=== PATIENT | male | born 1995 | race Caucasian/White ===

== ENCOUNTER 2017-07-22 13:29 | Emergency (ER) | payer SELFPAY ==
[~2017-07-22] VITALS: Ht 162.6 cm; Wt 63.5 kg
[2017-07-22] MEDS ORDERED: BUPROPION XL300 MG ORAL (13:34)
[2017-07-22 14:31] LABS: BASOPHILS % (AUTO) 1.3 % (0.0-2.0); EOSINOPHILS % (AUTO) 0.3 % (0.0-3.0); LYMPHOCYTES % (AUTO) 19.3 % (20.0-45.0); MEAN CORPUSCULAR HEMOGLOBIN 31.6 PG (27.0-31.0); MEAN CORPUSCULAR HGB CONC 34.2 G/DL (32.0-36.0); MEAN CORPUSCULAR VOLUME 92 FL (80-99); MEAN PLATELET VOLUME 6.6 FL (6.5-10.1); MONOCYTES % (AUTO) 9.6 % (1.0-10.0); NEUTROPHILS % (AUTO) 69.6 % (45.0-75.0); PLATELET COUNT 445 K/UL (150-450); RED BLOOD COUNT 5.26 M/UL (4.70-6.10); RED CELL DISTRIBUTION WIDTH 12.2 % (11.6-14.8); WHITE BLOOD COUNT 16.2 K/UL (4.8-10.8)
[2017-07-22 15:16] LABS: ALANINE AMINOTRANSFERASE 17 U/L (12-78); ALBUMIN/GLOBULIN RATIO 1.5 (1.0-2.7); ANION GAP 20 mmol/L (5-15); ASPARTATE AMINO TRANSFERASE 23 U/L (15-37); CALCIUM 9.6 MG/DL (8.5-10.1); CARBON DIOXIDE 18 MMOL/L (21-32); CHLORIDE 99 MMOL/L (98-107); CREATININE 1.2 MG/DL (0.55-1.30); GLOMERULAR FILTRATION RATE > 60 mL/min (>60); POTASSIUM 3.9 MMOL/L (3.5-5.1); SODIUM 137 MMOL/L (136-145); TOTAL PROTEIN 8.3 G/DL (6.4-8.2)
[2017-07-22 15:17] LABS: ACETAMINOPHEN < 10 MCG/ML (10-30)
[2017-07-22 15:18] LABS: ALCOHOL < 3 mg/dL
[2017-07-22 16:10] VITALS: BP 125/86
[2017-07-22 20:00] VITALS: BP 128/88
[2017-07-23 07:30] VITALS: BP 119/74
--- NOTE | 2017-07-23 07:47 | Emergency Room Report ---
Physical Exam Vital Signs Date Time Temp Pulse Resp B/P (MAP) Pulse Ox O2 Delivery O2 Flow Rate FiO2 07/22/17 13:32 98.8 122 16 138/80 99 Room Air Medical Decision Making ER Course Received signout from Dr. Luevano 22-year-old male history of depression supposed to be on Wellbutrin here for suicidal ideation Not on hold Currently patient sleeping comfortably, when aroused he is calm and cooperative , still states that he is suicidal ideation once at home off a bridge, states that he last had a slight hospitalization discharged 4 days ago from [facility] in [place] Was given Zyprexa overnight Labs showing positive for meth Pending psych eval Last Vital Signs Date Time Temp Pulse Resp B/P (MAP) Pulse Ox O2 Delivery O2 Flow Rate FiO2 07/22/17 20:00 97.6 85 15 128/88 100 Room Air Referrals: NOT CHOSEN ADDY/,REFERRING (PCP) Anthony Silvestre M.D. Jul 23, 2017 07:47
[2017-07-23 14:42] VITALS: BP 116/73
--- NOTE | 2017-07-23 18:11 | Emergency Room Report ---
History of Present Illness General Chief Complaint: Behavioral Complaint Source: EMS Present Illness HPI 22 YO Male presents to ED C/O SI , and HI. Pt. reports cocaine use approx 3 days ago. denies illicit drug use in the last 48 hours. pt. reports he was previously hospitalized for 15 days at [facility]. Pt. states since d/c he has not had any of his medication. pt. reports being prescribed Wellbutrin and Ambien. pt reports 1 PSA states he attempted to slit his arm. He shows a scar on the left a/c region. Pt. denies PMhx otherwise. Denies taking excess of pills /meds/chemicals/drugs in an OD attempt. states he had SI of "jumping off something, and if he doesn't get to then he might even hurt somebody." when asked about further details pt. is vague, has no specific plans, however states he needs help. Denies CP, Palpitations, abscesses, open wounds, fevers, chills, cough, SOB, delusions, hallucinations, or LOC. Pt. has difficulty keeping attention to answer HPI and ROS questions. Allergies: Coded Allergies: No Known Allergies (Unverified , 07/22/17) Patient History Past Medical History: see triage record Past Surgical History: none Pertinent Family History: none Immunizations: UTD Reviewed Nursing Documentation: PMH: Agreed, PSxH: Agreed Nursing Documentation-PMH Past Medical History: No History, Except For History Of Psychiatric Problem: Yes - DEPRESSION Review of Systems All Other Systems: limited - poor attention span. Physical Exam Vital Signs Date Time Temp Pulse Resp B/P (MAP) Pulse Ox O2 Delivery O2 Flow Rate FiO2 07/22/17 13:32 98.8 122 16 138/80 99 Room Air Sp02 EP Interpretation: reviewed, normal General Appearance: no apparent distress, alert, GCS 15, non-toxic Head: normocephalic, atraumatic Eyes: bilateral eye normal inspection, bilateral eye PERRL ENT: hearing grossly normal, no angioedema, normal voice Neck: full range of motion, supple/symm/no masses Respiratory: lungs clear, normal breath sounds, speaking full sentences Cardiovascular #1: regular rate, rhythm, normal capillary refill Gastrointestinal: normal bowel sounds, non tender, soft, no guarding, no rebound Rectal: deferred Genitourinary: normal inspection, no CVA tenderness Musculoskeletal: back normal, gait/station normal, normal range of motion, non- tender Neurologic: alert, oriented x3, responsive, motor strength/tone normal, sensory intact Psychiatric: anxious, other Skin: normal color, no rash, warm/dry, well hydrated, other - 2.5 inch linear scar in the left AC Medical Decision Making PA Attestation Dr. Montgomery is my supervising physician whom pt. management has been discussed with. Diagnostic Impression: Primary Impression: Behavioral disorder ER Course 22 YO Male presents to ED C/O SI , and HI. Pt. reports cocaine use approx 3 days ago. denies illicit drug use in the last 48 hours. pt. reports he was previously hospitalized for 15 days at [facility]. Pt. states since d/c he has not had any of his medication. pt. reports being prescribed Wellbutrin and Ambien. pt reports 1 PSA states he attempted to slit his arm. He shows a scar on the left a/c region. Pt. denies PMhx otherwise. Denies taking excess of pills /meds/chemicals/drugs in an OD attempt. states he had SI of "jumping off something, and if he doesn't get to then he might even hurt somebody." when asked about further details pt. is vague, has no specific plans, however states he needs help. Denies CP, Palpitations, abscesses, open wounds, fevers, chills, cough, SOB, delusions, hallucinations, or LOC. Pt. has difficulty keeping attention to answer HPI and ROS questions. PE: pt. appears anxious, he is cooperative, pt. exhibits tardive dyskinesia and intermittent jerky writhing movements of the wrists. has a difficult time sitting still, and is intermittently conversational. - Pt. not on a hold. - CMP: elevated BUN, and normal Cr. consistent with dehydration, electrolytes ok - CBC: WBC's elevated most likely stress reaction. 16.2 - UDS: positive for amphetamines - Acetominophen: 3.2 WNL Salicylates: WNL -Serum ETOH: no acute intoxication. -Dr. Philippe was contacted for Psych consult 07/22/17 @[id number] - she will come tomorrow [facility] to [facility]. - PET team contacted in the mean time to see if they are available sooner. Pt. is medically cleared, and awaiting final disposition by either PET Team or Dr. Philippe. will continue observation until final disposition is made. Labs Test 07/22/17 14:15 07/22/17 18:18 White Blood Count 16.2 K/UL (4.8-10.8) Red Blood Count 5.26 M/UL (4.70-6.10) Hemoglobin 16.6 G/DL (14.2-18.0) Hematocrit 48.6 % (42.0-52.0) Mean Corpuscular Volume 92 FL (80-99) Mean Corpuscular Hemoglobin 31.6 PG (27.0-31.0) Mean Corpuscular Hemoglobin Concent 34.2 G/DL (32.0-36.0) Red Cell Distribution Width 12.2 % (11.6-14.8) Platelet Count 445 K/UL (150-450) Mean Platelet Volume 6.6 FL (6.5-10.1) Neutrophils (%) (Auto) 69.6 % (45.0-75.0) Lymphocytes (%) (Auto) 19.3 % (20.0-45.0) Monocytes (%) (Auto) 9.6 % (1.0-10.0) Eosinophils (%) (Auto) 0.3 % (0.0-3.0) Basophils (%) (Auto) 1.3 % (0.0-2.0) Sodium Level 137 MMOL/L (136-145) Potassium Level 3.9 MMOL/L (3.5-5.1) Chloride Level 99 MMOL/L (98-107) Carbon Dioxide Level 18 MMOL/L (21-32) Anion Gap 20 mmol/L (5-15) Blood Urea Nitrogen 32 mg/dL (7-18) Creatinine 1.2 MG/DL (0.55-1.30) Estimat Glomerular Filtration Rate > 60 mL/min (>60) Glucose Level 92 MG/DL (74-106) Calcium Level 9.6 MG/DL (8.5-10.1) Total Bilirubin 0.9 MG/DL (0.2-1.0) Aspartate Amino Transf (AST/SGOT) 23 U/L (15-37) Alanine Aminotransferase (ALT/SGPT) 17 U/L (12-78) Alkaline Phosphatase 61 U/L (46-116) Total Protein 8.3 G/DL (6.4-8.2) Albumin 5.0 G/DL (3.4-5.0) Globulin 3.3 g/dL Albumin/Globulin Ratio 1.5 (1.0-2.7) Salicylates Level 3.2 ug/mL (2.8-20) Acetaminophen Level < 10 MCG/ML (10-30) Serum Alcohol < 3 mg/dL Urine Opiates Screen Negative (NEGATIVE) Urine Barbiturates Screen Negative (NEGATIVE) Phencyclidine (PCP) Screen Negative (NEGATIVE) Urine Amphetamines Screen Positive (NEGATIVE) Urine Benzodiazepines Screen Negative (NEGATIVE) Urine Cocaine Screen Negative (NEGATIVE) Urine Marijuana (THC) Screen Negative (NEGATIVE) Last Vital Signs Date Time Temp Pulse Resp B/P (MAP) Pulse Ox O2 Delivery O2 Flow Rate FiO2 07/23/17 14:42 98.0 68 17 116/73 100 Room Air Condition: Stable Signed Out To: Dr. Luevano Referrals: NOT CHOSEN IPA/,REFERRING (PCP) Nroah Chang Jul 23, 2017 18:11
[2017-07-23 18:19] VITALS: BP 14/70
--- NOTE | 2017-07-23 20:10 | Consultation ---
History of Present Illness General Chief Complaint: Behavioral Complaint Present Illness HPI 22 YO Male presents to ED C/O SI , and HI. Pt. reports cocaine use approx 3 days ago. denies illicit drug use in the last 48 hours. pt. reports he was previously hospitalized for 15 days at [facility]. please my dictation. the pt was placed on hold via community health pet team before i saw him Allergies: Coded Allergies: No Known Allergies (Unverified , 07/22/17) Medication History Scheduled Bupropion Hcl* (Wellbutrin*), 300 MG ORAL DAILY, (Reported) Patient History Healthcare decision maker Resuscitation status Advanced Directive on File Physical Exam Last 24 Hour Vital Signs Date Time Temp Pulse Resp B/P (MAP) Pulse Ox O2 Delivery O2 Flow Rate FiO2 07/23/17 18:19 67 16 14/70 100 Room Air 07/23/17 14:42 98.0 68 17 116/73 100 Room Air 07/23/17 07:30 71 20 119/74 100 Room Air Height (Feet): 5 Height (Inches): 4.00 Weight (Pounds): 140 Vlad Philippe M.D. Jul 23, 2017 20:10
[2017-07-23 21:56] VITALS: BP 102/63
[2017-07-24 01:15] VITALS: BP 96/47
--- NOTE | 2017-07-24 03:01 | Consultation ---
DATE OF CONSULTATION: 07/23/2017 CONSULTING PHYSICIAN: Vlad Philippe M.D. TIME SEEN: The patient was seen today around 10 a.m. HISTORY OF PRESENT ILLNESS: This is a 22-year-old male who presented to the emergency room complaining of suicidal ideation. He also stated that he has homicidal ideation. During the evaluation, to me, he stated he is hearing voices, that the voices are "wanting to kill him". The patient and denied using any drugs, however, system was positive for crystal meth. He admitted to using only cocaine several days ago. He denies using crystal meth recently. He also stated he has been at [facility] and recently discharged. He stated that suicidal ideation does not go away. He was observed eating his breakfast and was asking for more food. During my evaluation, he was calm and cooperative. He insisted that he needs to go to a psychiatric hospital. He also stated that he has been homeless. In regards to psychiatric followup, has not been following a psychiatry per recommendation and has not been taking any medication prescribed from the [facility]. He was prescribed Wellbutrin and Ambien. He denies having any antipsychotics. In the ER, he has been given Zyprexa 20 mg yesterday. This morning, he was given another dose of 10 mg and he will be given another 10 mg tonight. The patient is not endorsing depressive or manic symptoms. He was observed lying down on the gurney, sleeping, calm. No paranoid ideation or delusions were noted in his behavior. He was not observed responding to internal stimuli. He does not appear to be anxious or agitated. He is able to verbalize his needs, especially wanting to have food or with drinks. PAST PSYCHIATRIC HISTORY: He stated that he has been diagnosed with schizophrenia in the past, had several psychiatric hospitalization. It seems like he has a history of drug use in addition to the psych history. PAST MEDICAL HISTORY: Nonsignificant. ALLERGIES: No known drug allergies. SUBSTANCE ABUSE HISTORY: Significant for cocaine and crystal meth; however, he denies using crystal meth. MENTAL STATUS EXAMINATION: The patient is alert and oriented times self, place, situation, and place he is in. He was cooperative with the examination. His mood was dysphoric. Affect was constricted, congruent with mood. Thought process is concrete. Thought content, the patient states that he is suicidal and the voices are telling him to kill himself. Insight and judgment are good. ASSESSMENT: AXIS I Schizophrenia, crystal meth use, and cocaine abuse. AXIS II Deferred. AXIS III None. AXIS IV Low. AXIS V Global assessment of functioning is 50. PLAN: The patient was placed on a 51 50. We will observe and treat and reassess him tomorrow. If the patient is not suicidal or not an imminent danger to self or others, he will be discharged. Vlad Philippe M.D. DR: SOLEDAD JOB#: [id number] CC:
[2017-07-24 03:37] VITALS: BP 93/56
[2017-07-24 04:03] LABS: APPEARANCE,URINE CLEAR; KETONES,URINE NEGATIVE (NEGATIVE); LEUKOCYTE ESTERASE ,URINE NEGATIVE (NEGATIVE); NITRITE,URINE NEGATIVE (NEGATIVE); PH,URINE 6 (4.5-8.0); PROTEIN,URINE NEGATIVE (NEGATIVE); UROBILINOGEN,URINE NORMAL MG/DL (0.0-1.0)
[2017-07-24 04:22] LABS: RBC,URINE 0 /HPF (0 - 0)
[2017-07-24 04:23] LABS: BACTERIA,URINE OCCASIONAL /HPF; SQUAMOUS EPITHELIAL CELL,UR OCCASIONAL /LPF (NONE/OCC); WBC,URINE 0-2 /HPF (0 - 0)
[2017-07-24 06:28] VITALS: BP 91/51
[2017-07-24 10:25] VITALS: BP 108/73
== END 2017-07-24 10:25 ==
LOC: EDBD 13:29 → EMR 14:27
DX: F91.9 Conduct disorder, unspecified (principal); R45.851 Suicidal ideations; F32.9 Major depressive disorder, single episode, unspecified; F20.9 Schizophrenia, unspecified; F14.10 Cocaine abuse, uncomplicated; F15.90 Other stimulant use, unspecified, uncomplicated
CPT/HCPCS: 36415; 80053; 80306; 81001; 85025; 99284; G0480; 80329